=== PATIENT | male | born 1975 | race Two or more races ===

== ENCOUNTER 2021-03-08 07:16 | Outpatient (CLI) | payer OTHER ==
[~2021-03-08 07:16] MED LIST: FLOMAX PO; KETO10TA2 PO; ORPH100T PO; TORADOL10 MG PO; VISTARIL50 MG PO
== END 2021-03-08 07:22 | disposition home or self-care (01) ==
LOC: MRI 07:16
DX: C71.2 Malignant neoplasm of temporal lobe (principal)
CPT/HCPCS: 70553

== ENCOUNTER 2021-07-21 08:12 | Outpatient (CLI) | payer OTHER | END 2021-07-21 08:15 | disposition home or self-care (01) | LOC: MRI 08:12 | PROVIDERS: ATTEND Family Medicine | DX: C71.2 Malignant neoplasm of temporal lobe (principal) | CPT/HCPCS: 70552 ==

== ENCOUNTER → 2021-12-08 | Outpatient (CLI) | payer OTHER | END | disposition home or self-care (01) | LOC: MRI 07:39 | PROVIDERS: ATTEND Family Medicine | DX: C71.2 Malignant neoplasm of temporal lobe (principal) | CPT/HCPCS: 70553 ==

== ENCOUNTER 2022-05-17 07:57 | Outpatient (CLI) | payer OTHER | END 2022-05-17 08:04 | disposition home or self-care (01) | LOC: MRI 07:57 | PROVIDERS: ATTEND Family Medicine | DX: C71.2 Malignant neoplasm of temporal lobe (principal); M79.642 Pain in left hand | CPT/HCPCS: 70553 ==

== ENCOUNTER → 2022-11-16 | Outpatient (CLI) | payer OTHER | END | disposition home or self-care (01) | LOC: MRI 08:08 | DX: C71.2 Malignant neoplasm of temporal lobe (principal) | CPT/HCPCS: 70553 ==

== ENCOUNTER 2023-07-26 08:00 | Outpatient (CLI) | payer OTHER | END 2023-07-26 08:06 | disposition home or self-care (01) | LOC: MRI 08:00 | PROVIDERS: ATTEND Family Medicine | DX: C71.2 Malignant neoplasm of temporal lobe (principal) | CPT/HCPCS: 70553 ==

== ENCOUNTER 2024-04-03 07:37 | Outpatient (CLI) | payer OTHER | END 2024-04-03 07:41 | disposition home or self-care (01) | LOC: MRI 07:37 | PROVIDERS: ATTEND Family Medicine | DX: C71.2 Malignant neoplasm of temporal lobe (principal) | CPT/HCPCS: 70553 ==

== ENCOUNTER 2024-12-05 09:19 | Outpatient (CLI) | payer OTHER | END 2024-12-05 09:23 | disposition home or self-care (01) | LOC: MRI 09:19 | PROVIDERS: ATTEND Family Medicine | DX: C71.2 Malignant neoplasm of temporal lobe (principal) | CPT/HCPCS: 70553 ==

== ENCOUNTER 2025-01-30 09:25 | Outpatient (CLI) | payer OTHER | END 2025-01-30 09:34 | disposition home or self-care (01) | LOC: TOM 09:25 | PROVIDERS: ATTEND Family Medicine | DX: K63.5 Polyp of colon (principal) ==